=== PATIENT | male | born 1965 | race Caucasian/White ===

== ENCOUNTER 2016-11-11 11:18 | Outpatient (CLI) | payer BC | END 2016-11-11 11:19 | disposition home or self-care (01) | LOC: SC 11:18 | PROVIDERS: ATTEND Internal Medicine Pulmonary Disease | DX: G47.33 Obstructive sleep apnea (adult) (pediatric) (principal) | CPT/HCPCS: 99203; 99212 ==

== ENCOUNTER 2018-08-26 08:00 | Outpatient (CLI) | payer BC, MEDICARE ==
[2018-08-26 12:54] LABS: BASOPHILS % (AUTO) 0.5 %; EOSINOPHILS % (AUTO) 0.8 %; HGB - HEMOGLOBIN 15.3 g/dL (14.0-18.0); LYMPHOCYTES % (AUTO) 26.8 %; MEAN CORPUSCULAR HEMOGLOBIN 28.1 pg (27.0-31.0); MEAN CORPUSCULAR HGB CONC 31.2 g/dL (32.0-36.0); MEAN CORPUSCULAR VOLUME 90.1 fL (80.0-94.0); MEAN PLATELET VOLUME 10.1 fL (7.4-11.4); MONOCYTES # (AUTO) 0.4 10^3/uL (0.0-1.0); MONOCYTES % (AUTO) 9.9 %; NEUTROPHILS # (AUTO) 2.3 10^3/uL (1.5-6.6); NEUTROPHILS % (AUTO) 61.7 %; PLT - PLATELET COUNT 194 10^3/uL (130-450); RED BLOOD COUNT 5.45 10^6/uL (4.70-6.10); RED CELL DISTRIBUTION WIDTH 12.8 % (12.0-15.0); WHITE BLOOD COUNT 3.7 x10^3/uL (4.8-10.8)
[2018-08-26 13:25] LABS: ALBUMIN 4.4 g/dL (3.2-5.5); ALBUMIN/GLOBULIN RATIO 1.5 (1.0-2.2); CALCIUM 9.6 mg/dL (8.5-10.3); TOTAL PROTEIN 7.4 g/dL (6.7-8.2)
[2018-08-26 13:30] LABS: THYROID STIMULATING HORMONE 0.94 uIU/mL (0.34-5.60)
[2018-08-26 13:41] LABS: FOLATE 16.31 ng/mL (5.90 - >24.8)
== END 2018-08-26 23:59 | disposition home or self-care (01) ==
LOC: LAB.WCP 08:00
PROVIDERS: ATTEND Family Medicine
DX: R10.13 Epigastric pain (principal); F02.80 Dementia in other diseases classified elsewhere, unspecified severity, without behavioral disturbance, psychotic disturbance, mood disturbance, and anxiety
CPT/HCPCS: 36415; 80053; 82607; 82746; 84443; 85025

== ENCOUNTER 2018-09-29 09:01 | Outpatient (CLI) | payer MEDICARE | END 2018-09-29 09:02 | disposition EMS.NT | LOC: EMS 09:01 | PROVIDERS: ATTEND Surgery | DX: S80.812A Abrasion, left lower leg, initial encounter (principal); S80.811A Abrasion, right lower leg, initial encounter; X58.XXXA Exposure to other specified factors, initial encounter ==

== ENCOUNTER 2019-01-18 11:43 | Observation (INO) | payer MEDICARE ==
--- NOTE | 2019-01-18 12:26 | ED Physician Documentation ---
PD HPI FOCAL NEURO - Stated complaint Stated Complaint: GLF/HEAD INJ - Chief complaint Chief Complaint: Neuro - History obtained from History obtained from: Family - History of Present Illness Timing - onset: Other (53-year-old gentleman with early onset dementia, familial form. He has had it for almost 3 years now. Most of the history is from the . He started having seizures a few weeks ago. He was started on carbamazepine and Klonopin. Last night it sounds like he may have taken some extra Klonopin, may be about 6 tablets. This morning around 5 AM they found him in the bedroom all wrapped up in the blankets and on the floor face down. It looks like he hit his head. He is persistently altered. He also took several swigs of Pepto-Bismol last night.) Review of Systems Unable to obtain: AMS PD PAST MEDICAL HISTORY - Allergies Allergies/Adverse Reactions: Allergies Allergy/AdvReac Type Severity Reaction Status Date / Time No Known Drug Allergies Allergy Verified 01/18/19 11:59 PD ED PE NORMAL - Vitals Vital signs reviewed: Yes - General General: Other (He is somnolent, he arouses to loud voice. He will say his name. He knows he is in the hospital. He quickly falls back asleep. Some difficulty following commands.) - HEENT HEENT: Other (Small but not pinpoint pupils, no obvious nystagmus but he has difficulty following commands for extraocular movements.) - Neck Neck: Supple, no meningeal sign, No bony TTP - Cardiac Cardiac: RRR, No murmur - Respiratory Respiratory: No respiratory distress, Clear bilaterally - Abdomen Abdomen: Normal bowel sounds, Soft, Non tender - Derm Derm: Normal color, Warm and dry - Extremities Extremities: No deformity, No tenderness to palpate, Normal ROM s pain, No calf tenderness / cord - Neuro Neuro: Other (Somnolence, not really following commands. Hard to tell if he has any lateralizing signs but his gaze is straight and he withdraws all fours to painful stimulus.) Eye Opening: To Voice Motor: Localizes to Pain Verbal: Confused GCS Score: 12 Results - Vitals Vitals: Vital Signs - 24 hr 01/18/19 11:52 Temperature 99.7 C H Heart Rate 77 Respiratory 18 Rate Blood Pressure 116/89 H O2 Saturation 99 Oxygen O2 Source Room air - Labs Labs: Laboratory Tests 01/18/19 01/18/19 01/18/19 12:56 12:56 12:56 WBC 3.9 L RBC 5.17 Hgb 15.4 Hct 45.8 MCV 88.6 MCH 29.8 MCHC 33.6 RDW 12.9 Plt Count 188 MPV 9.5 Neut # (Auto) 2.0 Lymph # (Auto) 1.2 L [place] # (Auto) 0.4 Eos # (Auto) 0.3 Baso # (Auto) 0.0 Absolute Nucleated RBC 0.00 Nucleated RBC % 0.0 Sodium 141 Potassium 4.2 Chloride 105 Carbon Dioxide 32 Anion Gap 4.0 L BUN 14 Creatinine 1.0 Estimated GFR (MDRD) 79 L Glucose 100 Calcium 9.2 Total Bilirubin 0.6 AST 28 ALT 63 H Alkaline Phosphatase 48 Total Protein 7.1 Albumin 4.3 Globulin 2.8 Albumin/Globulin Ratio 1.5 Lipase 39 TSH 0.65 Urine Color Urine Clarity Urine pH Ur Specific [place] Urine Protein Urine Glucose (UA) Urine Ketones Urine Occult Blood Urine Nitrite Urine Bilirubin Urine Urobilinogen Ur Leukocyte Esterase Ur Microscopic Review Urine Culture Comments Last Dose Date Last Dose Time Salicylates < 6.0 Urine Opiates Screen Ur Oxycodone Screen Urine Methadone Screen Ur Propoxyphene Screen Acetaminophen < 10 L Ur Barbiturates Screen Carbamazepine Ur Tricyclics Screen Ur Phencyclidine Scrn Ur Amphetamine Screen U Methamphetamines Scrn U Benzodiazepines Scrn Urine Cocaine Screen U Cannabinoids Screen Ethyl Alcohol < 5.0 01/18/19 01/18/19 12:56 13:22 WBC RBC Hgb Hct MCV MCH MCHC RDW Plt Count MPV Neut # (Auto) Lymph # (Auto) [place] # (Auto) Eos # (Auto) Baso # (Auto) Absolute Nucleated RBC Nucleated RBC % Sodium Potassium Chloride Carbon Dioxide Anion Gap BUN Creatinine Estimated GFR (MDRD) Glucose Calcium Total Bilirubin AST ALT Alkaline Phosphatase Total Protein Albumin Globulin Albumin/Globulin Ratio Lipase TSH Urine Color YELLOW Urine Clarity CLEAR Urine pH 6.0 Ur Specific [place] 1.010 Urine Protein NEGATIVE Urine Glucose (UA) NEGATIVE Urine Ketones NEGATIVE Urine Occult Blood NEGATIVE Urine Nitrite NEGATIVE Urine Bilirubin NEGATIVE Urine Urobilinogen 0.2 (NORMAL) Ur Leukocyte Esterase NEGATIVE Ur Microscopic Review NOT INDICATED Urine Culture Comments NOT INDICATED Last Dose Date Unknown Last Dose Time Unknown Salicylates Urine Opiates Screen NEGATIVE Ur Oxycodone Screen NEGATIVE Urine Methadone Screen NEGATIVE Ur Propoxyphene Screen NEGATIVE Acetaminophen Ur Barbiturates Screen NEGATIVE Carbamazepine < 2.0 Ur Tricyclics Screen POSITIVE H Ur Phencyclidine Scrn NEGATIVE Ur Amphetamine Screen NEGATIVE U Methamphetamines Scrn NEGATIVE U Benzodiazepines Scrn POSITIVE H Urine Cocaine Screen NEGATIVE U Cannabinoids Screen NEGATIVE Ethyl Alcohol PD MEDICAL DECISION MAKING - ED course ED course: This is a 53-year-old gentleman with early onset dementia presents with significant delirium and altered mental status probably from a benzodiazepine overdose last night. Here he is altered and at times agitated as well. Trying to get out of bed and very unsteady, at least a 2 person assist to even pivot out of the bed. did want a head CT after discussion, no pertinent positive findings. She will be unable to take care of him at home and I spoke with Dr. Zayas for observation at 1:58 PM. Departure - Departure Disposition: ED Place in Observation Clinical Impression: Altered mental status Qualifiers: Altered mental status type: delirium Qualified Code(s): R41.0 - Disorientation, unspecified Condition: Fair Discharge Date/Time: 01/18/19 14:44
[2019-01-18 13:03] LABS: BASOPHILS % (AUTO) 0.8 %; EOSINOPHILS # (AUTO) 0.3 10^3/uL (0.0-0.7); EOSINOPHILS % (AUTO) 6.6 %; HGB - HEMOGLOBIN 15.4 g/dL (14.0-18.0); LYMPHOCYTES # (AUTO) 1.2 10^3/uL (1.5-3.5); LYMPHOCYTES % (AUTO) 30.2 %; MEAN CORPUSCULAR HEMOGLOBIN 29.8 pg (27.0-31.0); MEAN CORPUSCULAR HGB CONC 33.6 g/dL (32.0-36.0); MEAN CORPUSCULAR VOLUME 88.6 fL (80.0-94.0); MEAN PLATELET VOLUME 9.5 fL (7.4-11.4); MONOCYTES # (AUTO) 0.4 10^3/uL (0.0-1.0); MONOCYTES % (AUTO) 10.9 %; NEUTROPHILS % (AUTO) 51.2 %; PLT - PLATELET COUNT 188 10^3/uL (130-450); RED BLOOD COUNT 5.17 10^6/uL (4.70-6.10); RED CELL DISTRIBUTION WIDTH 12.9 % (12.0-15.0); WHITE BLOOD COUNT 3.9 x10^3/uL (4.8-10.8)
--- NOTE | 2019-01-18 13:03 | CT Report ---
Reason: ALOC Procedure Date: 01/18/2019 Accession Number: [id number] / [id number] Procedure: CT - HEAD WO CPT Code: Final Report FULL RESULT: EXAM: CT HEAD EXAM DATE: 01/18/2019 12:38 PM. CLINICAL HISTORY: Acute loss of consciousness. COMPARISON: None. TECHNIQUE: Multiaxial CT images were obtained from the foramen magnum to the vertex. Reformats: Sagittal and coronal. IV contrast: None. In accordance with CT protocol optimization, one or more of the following dose reduction techniques were utilized for this exam: automated exposure control, adjustment of mA and/or KV based on patient size, or use of iterative reconstructive technique. FINDINGS: Parenchyma: No intraparenchymal hemorrhage. No evidence of mass, midline shift, or CT findings of infarction. [place]amilla-white differentiation is distinct. Extraaxial Spaces: Normal for age. No subdural or epidural collections identified. Ventricles: Normal in size and position. Sinuses and Orbits: Imaged paranasal sinuses, orbits, and mastoids show no significant abnormality. Bones: No evidence of fracture or calvarial defect. Other: None. IMPRESSION: No acute intracranial abnormality. [facility]
[2019-01-18] MEDS ORDERED: OLANZapine 10 MG VIAL IM STA (13:18)
[2019-01-18] MEDS ORDERED: OLANZapine 10 MG VIAL IM ONE ×2 (13:18→22:13)
[2019-01-18 13:21] LABS: ACETAMINOPHEN < 10 ug/mL (10-30); ALBUMIN 4.3 g/dL (3.2-5.5); ALBUMIN/GLOBULIN RATIO 1.5 (1.0-2.2); ALKALINE PHOSPHATASE 48 IU/L (42-121); ALT ALANINE AMINOTRANSFERASE 63 IU/L (10-60); AST ASPARTATE AMINOTRANSFERASE 28 IU/L (10-42); BILIRUBIN,TOTAL 0.6 mg/dL (0.2-1.0); BUN - BLOOD UREA NITROGEN 14 mg/dL (6-20); CALCIUM 9.2 mg/dL (8.5-10.3); CARBON DIOXIDE - CO2 32 mmol/L (21-32); CHLORIDE 105 mmol/L (101-111); GFR - MDRD 79 (>89); GLUCOSE 100 mg/dL (70-100); LIPASE 39 U/L (22-51); SALICYLATE < 6.0 mg/dL; SODIUM 141 mmol/L (135-145); TOTAL PROTEIN 7.1 g/dL (6.7-8.2)
[2019-01-18 13:26] LABS: CARBAMAZEPINE (TEGRETOL) < 2.0 ug/mL
[2019-01-18 13:27] LABS: MUDS CUTOFF CONCENTRATIONS CUTOFF CONC BELOW:
[2019-01-18 13:29] LABS: BILIRUBIN,URINE NEGATIVE (NEGATIVE); GLUCOSE, URINE (UA) NEGATIVE (NEGATIVE); KETONES,URINE (UA) NEGATIVE (NEGATIVE); LEUKOCYTE ESTERASE, URINE NEGATIVE (NEGATIVE); NITRITE,URINE NEGATIVE (NEGATIVE); OCCULT BLOOD,URINE NEGATIVE (NEGATIVE); PROTEIN,URINE NEGATIVE (NEGATIVE); UROBILINOGEN,URINE 0.2 (NORMAL) E.U./dL (NORMAL)
[2019-01-18 13:30] LABS: CLARITY,URINE CLEAR (CLEAR)
[2019-01-18 13:39] LABS: COCAINE SCREEN URINE NEGATIVE (NEGATIVE); METHAMPHETAMINES SCREEN, URINE NEGATIVE (NEGATIVE); OPIATE SCREEN, URINE NEGATIVE (NEGATIVE)
[2019-01-18 13:40] LABS: AMPHETAMINE SCREEN,URINE NEGATIVE (NEGATIVE); BENZODIAZEPINES SCREEN, URINE POSITIVE (NEGATIVE); METHADONE SCREEN, URINE NEGATIVE (NEGATIVE); OXYCODONE SCREEN, URINE NEGATIVE (NEGATIVE); PROPOXYPHENE SCREEN, URINE NEGATIVE (NEGATIVE); TRICYCLIC ANTIDEPRESSANT,URINE POSITIVE (NEGATIVE)
[2019-01-18] MEDS ORDERED: SODIUM CHLORIDE FLUSH 0.9% 10 ML SYRINGE IVP PRN (13:59)
[2019-01-18] MEDS ORDERED: LACTATED RINGERS 1,000 ML IV SCH (14:00)
--- OUTSIDE RECORDS SUMMARY | 2019-01-18 16:18 | EXTERNAL MEDICAL SUMMARY RPT | CONTINUITY OF CARE DOCUMENT ---
:1965 Author Name GABO [facility] Address Unavailable Unavailable , PROBLEMS Condition Status Date Provider Notes Seizure disorder active Kenya Benavidez PA-C Weight loss active Mario Sainz MD Abdominal pain, epigastric completed - Kenya mcconnell PA-C Alzheimer's dementia active Abbe Jay MD Obstructive sleep apnea active Xochitl ramos MD Abdominal pain completed - Abbe Jay MD Encounter for screening for active [place], EMR malignant neoplasm of Budget Controller prostate Perfect Binder Setter Physical examination completed - Abbe Jay MD VIRAL URI completed - Abbe Jay MD GASTROENTERITIS completed - Sandee Bonner DO URI completed - Hany Ashford MD CELLULITIS/ABSCESS NOS completed - Abbe cano MD PLANTAR FASCIITIS completed - Kenya Benavidez PA-C U R I completed - Per Briseno MD ABDOMIAL BRUIT completed - Kenya Benavidez PA-C A A A completed - Kenya Benavidez PA-C SLEEP APNEA completed - Abbe Jay MD ENCOUNTERS Date Type Provider Location Encounter Diagn osis Ambulatory Irlanda L [facility] UNK - Encounter Heggenes, Primary Care [place] Quality Support [facility] Professional Skateboarder Ambulatory Kenya Bajwa [facility] UNK - Encounter Young, PA-C [facility] Kenya Benavidez PA-C [facility] Ambulatory Kenya L [facility] UNK - Encounter Young, PA-C [facility] Kenya Benavidez PA-C [facility] Ambulatory Kenya Bajwa [facility] UNK - Encounter Young, PA-C [facility] Kenya Benavidez PA-C [facility] Ambulatory Kenya Bajwa [facility] UNK - Encounter Young, PA-C [facility] Kenya Benavidez PA-C [facility] Ambulatory Kenya L [facility] UNK - Encounter Young, PA-C [facility] Kenya Benavidez PA-C [facility] Ambulatory Tegan Salvador, [facility] UNK - Encounter AMBAR Clark, Primary Care [place] Patient [facility] Registrar Ambulatory Judy Randhawa, [facility] UNK - Encounter Referrals Spiral Winder Primary [facility] [place] RH Ambulatory Judy Randhawa [facility] UNK - Encounter Referrals Spiral Winder Primary Care [place] RH Ambulatory Kerri Vang [facility] UNK - Encounter LinkLogic Primary Care [place] RH Ambulatory Kenya Bajwa [facility] UNK - Encounter Young, PA-C Primary Care [place] Kenya Benavidez, PA-C [facility] Ambulatory Kenya Bajwa [facility] UNK - Encounter Young, PA-C Primary Care [place] Kenya Benavidez PA-C Ambulatory Kenya L [facility] UNK - Encounter Young, PA-C Primary Care [place] Kenya Benavidez, PA-C [facility] Ambulatory Kenya L [facility] UNK - Encounter Young, PA-C Primary Care [place] Kenya Benavidez, PA-C [facility] Ambulatory Kenya aSna [facility] UNK - Encounter Young, PA-C Primary Care [place] Kenyajavier Benavidez, PA-C [facility] Ambulatory Kenya Bajwa [facility] UNK - Encounter Young, PA-C Primary Care [place] Kenya Benavidez, PA-C [facility] Ambulatory Kenya Bjawa [facility] Seizure disord er - Encounter Young, PA-C Primary Care [place] Kenya Benavidez, PA-C Kaila Courtney, MARTHA Mckeon, Patient Registrar Ambulatory Teena Fay, [facility] UNK - Encounter Patient Primary Care [place] Registrar [facility] Ambulatory Lis Gao RN [facility] UNK - Encounter Primary Care [place] RHC Ambulatory Lis Gao RN [facility] UNK - Encounter Agaanay Clark, Primary Care [place] Patient [facility] Registrar Ambulatory Kenya L [facility] UNK - Encounter Young, PA-C Primary Care [place] Kenya Benavidez, PA-C [facility] Ambulatory Kenya Bajwa [facility] UNK - Encounter Young, PA-C Primary Care [place] Kenya Benavidez, PA-C [facility] Ambulatory Kenya Bajwa [facility] UNK - Encounter Young, PA-C Primary Care [place] Kenya Benavidez, PA-C [facility] Ambulatory Judy Randhawa, [facility] UNK - Encounter Referrals Spiral Winder Primary Care [place] RHC Ambulatory Judy Randhawa, [facility] UNK - Encounter Referrals Spiral Winder Primary Care [place] RHC Ambulatory Kenya Bajwa [facility] UNK - Encounter Young, PA-C Primary Care [place] CHELITA BourgeoisC CARMEN CotoC Ambulatory Calista Ro [facility] UNK - Encounter Raul, Primary Care [place] Referrals C Ambulatory Adri Silva, [facility] UNK - Encounter MARTHA Bajwa Primary Care [place] MJ Benavidez-C [facility] MJ Ware-C Vero Harper, Casualty Claims Supervisor Ambulatory Scarlett Garcia, [facility] UNK - Encounter Patient Primary Care [place] Registrar [facility] Ambulatory Kenya Bajwa [facility] Abdominal pain , - Encounter MJ Benavidez-C Primary Care [place] epigastri c JUAN A Bourgeois MA-C Ambulatory Scarlettjaylon Garcia, [facility] UNK - Encounter Patient Primary Care [place] Registrar [facility] Ambulatory Kenya Bajwa [facility] UNK - Encounter Pramod PA-C Primary Care [place] Kenya Benavidez PA-C [facility] Ambulatory Siri Kebede MA [facility] UNK - Encounter Primary Care [place] [facility] Ambulatory Kenya Bajwa [facility] UNK - Encounter Pramod PA-C Primary Care [place] Kenya Benavidez PA-C [facility] Ambulatory Kenya Bajwa [facility] UNK - Encounter Pramod PA-C Primary Care [place] Kenya Benavidez PA-C [facility] Ambulatory Mario Sainz, [facility] UNK - Encounter MD Mario Worley Primary Care [place] MD Alistair [facility] Ambulatory Mario Sainz, [facility] UNK - Encounter MD Mario Worley Primary Care [place] MD Alistair [facility] LinkLog Ambulatory Mario Sainz [facility] UNK - Encounter MD Mario Worley Primary Care [place] MD Alistair [facility] Ambulatory Mario Sainz [facility] UNK - Encounter MD Mario Worley Primary Care [place] MD Alistair [facility] LinkLog Ambulatory Mario Sainz [facility] UNK - Encounter MD Mario Worley Primary Care [place] MD Alistair [facility] Siri Kebede, GISSELLE Ambulatory Mario Sainz [facility] UNK - Encounter MD Mario Worley [facility] Care [place] MD Alistair [facility] Ambulatory Mario Sainz, [facility] Abdominal p ain, - Encounter MD Mario Worley [facility] epigastri cWeight loss MD Alistair [facility] Siri Kebede, GISSELLE Ambulatory Migdalia Marquez, [facility] UNK - Encounter Patient Primary Care [place] Registrar [facility] Ambulatory Annia Fraser [facility] UNK - Encounter AMBAR Iyer Primary Care [place] Coco Rios, [facility] Referrals Spiral Winder Ambulatory Abbe Fraser [facility] Physical - Encounter MD Misty Primary Care [place] examinati onAbdominal Abbe Varela painAlzheimer' s dementia MD Lselye Jay MA-C Ambulatory Abbe Fraser [facility] UNK - Encounter MD Misty Primary Care [place] Abbe Jay MD [facility] Ambulatory Irlanda L [facility] UNK - Encounter Heggjennifer, Surgical Care Quality Combat Rifle Crewmember Ambulatory Abbe Fraser [facility] UNK - Encounter MD Misty Primary Care [place] MD Tegan Garcia, AMBAR Ambulatory Irlanda Sana [facility] UNK - Encounter Hanna, Primary Care [place] Quality Support Drive Professional Skateboarder [facility] Tegan Salvador, AMBAR Ambulatory Abbe Fraser [facility] UNK - Encounter MD Misty Primary Care [place] Abbe Jay MD [facility] Irlanda Ferreira, Quality Combat Rifle Crewmember Ambulatory Xochitl Norman [facility] UNK - Encounter MD Afsaneh Primary Care [place] MD Calista Brower, Referrals Ambulatory Calista A [facility] UNK - Encounter Raul, Primary Care [place] Referrals Drive Ambulatory Lorin [facility] Obstructive sl eep apnea - Encounter MARTHA Galvan Primary Care [place] Calistaroyer Carter, Referrals MD Xochitl Espinoza MD Brittany Jennings, PFS Ambulatory Jerel Lozoya [facility] UNK - Encounter Manager Heart FailureSupervisor Cemetery Workers [place] Drive Ambulatory Abbe Fraser [facility] UNK - Encounter MD Misty Primary Care [place] Abbe Jay MD LinkLog Ambulatory Hakaner J [facility] Abdominal penny n - Encounter MD Misty Primary Care [place] MD Leslye Garcia MA-C Ambulatory [facility]e [facility] UNK - Encounter MARTHA Feliz Primary Care [place] Nichole Delcid. Le Courtney, Patient Registrar Ambulatory Hakaner J [facility] UNK - Encounter MD Misty Primary Care [place] Abbe Jay MD [facility] Ambulatory [facility]be [facility] UNK - Encounter MD Misty Primary Care [place] MD Leslye Garcia MA-C Ambulatory [place], [facility] Encounter for screening - Encounter EMR Application Primary Care [place] for ma lignant neoplasm of Support Drive prostate Perfect Binder Setter Ki Velez, EMR Tool Or Die Drawing Checker Ambulatory Abbe Fraser [facility] UNK - Encounter MD Misty Primary Care [place] Abbe Jay MD LinkLog Ambulatory Kenya Bajwa [facility] UNK - Encounter JUAN A Benavidez Primary Care [place] JUAN A Sneed, Referrals Layla Love MA Ambulatory [place], [facility] UNK - Encounter EMR Application Primary Care [place] Support Drive Perfect Binder Setter Ki Velez, EMR Tool Or Die Drawing Checker Rosita Martinez, Referrals JUAN A Ware PA-C Ambulatory Abbe Fraser [facility] SLEEP APNEA - Encounter MD Misyt Primary Care [place] MD Leslye Garcia MA-C Ambulatory Scharlene F [facility] UNK - Encounter Heston, Primary Care [place] Casualty Claims Supervisor Drive Ambulatory Scharlene F [facility] UNK - Encounter Heston, Primary Care [place] Casualty Claims Supervisor Drive Ambulatory Bonita Bajwa [facility] UNK - Encounter VICENTA Ayala Primary Care [place] Drive Ambulatory Julia Tubbs [facility] UNK - Encounter PA-C LinkLog Primary Care [place] Drive Ambulatory Abbe Fraser [facility] UNK - Encounter MD Misty Primary Care [place] Abbe Jay MD [facility] Ambulatory Julia Tubbs, [facility] Physical - Encounter JUAN A Bajwa Primary Care [place] examinati onEncounter for HOLLI Zuñiga fo ranulfo Odell, Chart neoplasm of p rostate Population Health Manager Ambulatory King Mckeon, [facility] UNK - Encounter METAL WIRE TECHNICIAN Kirsite Calhoun Primary Care [place] Bandar, Casualty Claims Supervisor Drive Ambulatory Rajesh Melchor, [facility] UNK - Encounter MA-C Primary Care Neb[place] Drive Ambulatory Savanah Wagner, [facility] UNK - Encounter Medical Records Primary Care [place] LinkLog King Nichole Mckeon [facility] Ambulatory Abbe [facility] VIRAL URI - Encounter MD Misty Primary Care [place] MD King Garcia, [facility] Emily Odell, Chart Population Health Manager Ambulatory Abbe Fraser [facility] UNK - Encounter MD Misty Primary Care [place] Abbe Jay MD LinkLog Ambulatory Earnestine uZñiga [facility] UNK - Encounter HOLLI Calhoun Primary Care [place] HOLLI Ashley Drive Ambulatory Judye A Scheidt, [facility] UNK - Encounter DO Judye A Primary Care [place] Scheidt, DO Drive Ambulatory Judye A Scheidt, [facility] UNK - Encounter DO Judye A Primary Care [place] Scheidt, DO Drive [facility] HOLLI Fernandez LPN Ambulatory Judye A Scheidt, [facility] UNK - Encounter DO Judye A Primary Care [place] Scheidt, DO Drive LinkLog Ambulatory Judye A Scheidt, [facility] UNK - Encounter DO Judye A Primary Care [place] Scheidt, DO Drive [facility]Logic Ambulatory Judye A Scheidt, [facility] UNK - Encounter DO Judye A Primary Care [place] Scheidt, DO Drive [facility]Logic Ambulatory Judye A Scheidt, [facility] GASTROENTE RITIS - Encounter DO Judye A Primary Care [place] Scheidt, DO Drive HOLLI Fernandez, Chart Population Health Manager Ambulatory Adri Lj [facility] UNK - Encounter GISSELLE Lowe Primary Care Nebo Drive Ambulatory Abbe Fraser [facility] UNK - Encounter MD Misty Primary Care [place] Abbe Jay MD [facility]Log Ambulatory Abeb [facility] UNK - Encounter MD Misty Primary Care [place] MD Carla Garcia, Patient Accounts Giovanna Lares, Chart Population Health Manager MARTHA Delcid Ambulatory Abbe Fraser [facility] UNK - Encounter MD Misty Primary Care [place] Abbe Jay MD LinkLog Ambulatory Bren Aponte, [facility] UNK - Encounter Medical Records Primary Care Nebo Drive Ambulatory King Mckeon [facility] UNK - Encounter [facility] Primary Care [place] Drive Ambulatory Abbe [facility] UNK - Encounter MD Misty Primary Care [place] Abbe Jay MD Ambulatory [facility] UNK - Encounter MD Misty Primary Care [place] Abbe Jay MD LinkLog King Mckeon [facility] Ambulatory King Mckeon [facility] UNK - Encounter METAL WIRE TECHNICIAN Primary Care Neb[place] Drive Ambulatory Abbe [facility] UNK - Encounter MD Misty Primary Care [place] Abbe Jay MD Ambulatory [facility]be [facility] UNK - Encounter MD Misty Primary Care [place] Abbe Jay MD LinkLogic King Mckeon METAL WIRE TECHNICIAN Ambulatory King Mckeon [facility] UNK - Encounter METAL WIRE TECHNICIAN Primary Care [place] Drive Ambulatory Maryann Jay, [facility] UNK - Encounter PA-C Primary Care [place] Drive Ambulatory Abbe [facility] UNK - Encounter MD Misty Primary Care [place] Abbe Jay MD [facility] Ambulatory [facility]be [facility] UNK - Encounter MD Misty Primary Care [place] Abbe Jay MD [facility] Ambulatory [facility]be [facility] UNK - Encounter MD Misty Primary Care [place] Abbe Jay MD [facility] Ambulatory Estevan [facility] UNK - Encounter PA-C LinkLog Primary Care [place] Drive Ambulatory Abbe [facility] UNK - Encounter MD Misty Primary Care [place] Abbe Jay MD LinkLogic Maryann Jay, PA-C Ambulatory Maryann Jay, [facility] UNK - Encounter PA-C [facility] Primary Care [place] Drive Ambulatory Maryann Jay, [facility] UNK - Encounter PA-C LinkLog Primary Care [place] Drive Ambulatory Maryann Jay, [facility] UNK - Encounter PA-C LinkLog Primary Care [place] Drive Ambulatory Maryann Jay [facility] UNK - Encounter PA-C [facility] Primary Care [place] Drive Ambulatory Hakaner J [facility] UNK - Encounter MD Misty Primary Care [place] Abbe Jay MD LinkLog Maryann Jay, PA-C King Mckeon, [facility] Ambulatory Rebecca A [facility] UNK - Encounter Mary Primary Care [place] Casualty Claims Supervisor Drive Ambulatory Christopher J [facility] UNK - Encounter MD Misty Primary Care [place] MD King Garcia, [facility] Ambulatory Calvina M [facility] UNK - Encounter HOLLI Mathews Primary Care [place] Drive Ambulatory Kenya Sana [facility] UNK - Encounter Pramod PA-C Primary Care [place] MJ Sneed-C LinkLog Ambulatory Kenya L [facility] PLANTAR FASCII TIS - Encounter MJ Benavidez-Brunilda Primary Care [place] MJ Sneed-C Claudine Landaverde LPN Ambulatory Hakaner J [facility] UNK - Encounter MD Misty Primary Care [place] Abbe Jay MD LinkLog Ambulatory Josueopher J [facility] UNK - Encounter MD Misty Primary Care [place] Abbe Jay MD LinkLog Ambulatory Hany Living[place] [facility] UNK - Encounter MD Dejon Primary Care [place] MD Rebecca Zarate LPN Ambulatory Hany [place] [facility] URI - Encounter MD Dejon Primary Care [place] MD Rebecca Zarate LPN Ambulatory Christopher J [facility] CELLULITIS/AB SCESS NOS - Encounter MD Misty Primary Care [place] MD Nkechi Garcia LPN Ambulatory Hollister H [facility] UNK - Encounter Edith, PRODUCT DEVELOPER Primary Care [place] Vicky Pike, Drive Casualty Claims Supervisor Ambulatory Calista A [facility] UNK - Encounter Raul Primary Care [place] Referrals Drive Ambulatory Kenya L [facility] PLANTAR FASCII TIS - Encounter JUAN A Benavidez Primary Care [place] JUAN A Sneed LPN Ambulatory Abbe Fraser [facility] UNK - Encounter MD Misty Primary Care [place] Abbe Jay MD [facility] Ambulatory Kenya [facility] UNK - Encounter MJ Benavidez-Brunilda Primary Care [place] Kenya Benavidez PA-C [facility]aja Ambulatory [facility]be [facility] UNK - Encounter MD Misty Primary Care [place] MD King Garcia, [facility] Ambulatory Noreen Cao [facility] UNK - Encounter Patient Accounts Primary Care Neb[place] Drive Ambulatory Abbe [facility] UNK - Encounter MD Misty Primary Care [place] Abbe Jay MD [facility]Log[facility] Ambulatory Kenya L [facility] UNK - Encounter JUAN A Benavidez Primary Care [place] Kenya Benavidez PA-C [facility]aja Ambulatory Kenya [facility] A A AABDOMIAL BRUIT - Encounter MJ Benavidez-Brunilda Primary Care [place] JUAN A Sneed LPN Ambulatory Christopher J [facility] UNK - Encounter MD Misty Primary Care [place] Abbe Jay MD LinkLogic Ambulatory Josueopher J [facility] UNK - Encounter MD Misty Primary Care [place] Abbe Jay MD [facility]Log[facility] Ambulatory Hakaner Bria [facility] UNK - Encounter MD Misty Primary Care [place] Abbe Jay MD [facility]Logic Ambulatory Josueopher J [facility] UNK - Encounter MD Misty Primary Care [place] Abbe Jay MD LinkLog Ambulatory Per [facility] UNK - Encounter MD Finn Primary Care [place] Per Briseno MD LinkLog Ambulatory [facility]be [facility] UNK - Encounter MD Misty Primary Care [place] Abbe Jay MD LinkLog Ambulatory [facility]be [facility] UNK - Encounter MD Misty Primary Care [place] Abbe Jay MD LinkLog Ambulatory [facility]be [facility] UNK - Encounter MD Misty Primary Care [place] MD Irlanda Garcia, Quality Combat Rifle Crewmember Ambulatory Hakaner Bria [facility] UNK - Encounter MD Misty Primary Care [place] Abbe Jay MD LinkLog Ambulatory Calista A [facility] UNK - Encounter Raul Primary Care [place] Referrals Christi Barrientos, Referrals Ambulatory [facility] SLEEP APNEAA A AABDOMIAL - Encounter MD Finn Primary Care [place] BRUITU R I MD Ki Toro EMR Tool Or Die Drawing Checker Ki Velez EMR Tool Or Die Drawing Checker VITAL SIGNS Date Observation Value Provider blood pressure, diastolic 76 mm[Hg] Kaila Leiva MARTHA Courtney " blood pressure, systolic 137 mm[Hg] Kaila Leiva MARTHA Courtney " blood pressure, cuff size regular Kaila Leiva MARTHA Courtney " blood pressure, site #1 L. arm sitting Kaila Leiva MARTHA Courtney " pulse rate E&M 73 /min Kaila Leiva MARTHA Jeo " temperature site oral Kaila Leiva MARTHA Vang ms " temperature E&M 97.6 [degF] Kaila S MARTHA Joe " weight E&M 159.2 lbs. Kaila Cali MARTHA Joe blood pressure, cuff size regular MARTHA Coto " blood pressure, site #1 L. arm sitting Idaa MARTHA Love " blood pressure, diastolic 71 mm[Hg] MARTHA Coto " blood pressure, systolic 109 mm[Hg] MARTHA Coto " pulse rate E&M 66 /min CARMEN Coto " temperature site oral GISSELLE Coto " temperature E&M 97.7 [degF] CARMEN Coto " weight E&M 150.50 lbs. CARMEN Coto blood pressure, cuff size regular MARTHA Coto " blood pressure, site #1 R. arm sitting Ethanejda MARTHA Love " blood pressure, diastolic 76 mm[Hg] MARTHA Coto " blood pressure, systolic 112 mm[Hg] MARTHA Coto " pulse rate E&M 65 /min CARMEN Coto " temperature site oral GISSELLE Coto " temperature E&M 97.5 [degF] CARMEN Coto " weight E&M 151 lbs. CARMEN Coto blood pressure, cuff size regular Siri Kebede MA" blood pressure, site #1 L. arm sitting Siri roman MA " respiratory rate E&M 16 /min Siri ordonez MA " blood pressure, diastolic 72 mm[Hg] Siri Kebede MA " blood pressure, systolic 121 mm[Hg] Siri Kebede MA " temperature site oral Lj Disal " pulse rate E&M 88 /min Siri Kebede MA " weight E&M 152.8 lbs. Siri Kebede MA " height E&M 68 [in_i] Siri Kebede MA " temperature E&M 98.3 [degF] Siri Kebede MA pulse rate E&M 50 /min MARTHA Rojas " temperature E&M 98.4 [degF] MARTHA Rojas " blood pressure, site #1 L. arm sitting MARTHA Warren " blood pressure, diastolic 62 mm[Hg] MARTHA Coelho " blood pressure, systolic 110 mm[Hg] MARTHA Martel " respiratory rate E&M 14 /min MARTHA Rojas " weight E&M 166 lbs. MARTHA Rojas " height E&M 68 [in_i] MARTHA Rojas " blood pressure, cuff size regular MARTHA Coelho " temperature site oral MARTHA Mcpherson blood pressure, site #1 L. arm sitting MARTHA Warren " blood pressure, diastolic 68 mm[Hg] MARTHA Coelho " blood pressure, systolic 110 mm[Hg] MARTHA Martel " pulse rate E&M 56 /min MARTHA Rojas " temperature E&M 97.9 [degF] MARTHA Rojas " respiratory rate E&M 14 /min MARTHA Rojas " height E&M 68 [in_i] MARTHA Rojas " weight E&M 155 lbs. MARTHA Rojas " blood pressure, cuff size regular MARTHA Coelho " temperature site oral MARTHA Mcpherson blood pressure, site #1 R. arm sitting MARTHA Warren " blood pressure, diastolic 72 mm[Hg] Tannercriselda rolleMARTHA Geller " blood pressure, systolic 118 mm[Hg] MARTHA Martel " pulse rate E&M 62 /min MARTHA Rojas " respiratory rate E&M 14 /min MARTHA Rojas " temperature E&M 98.2 [degF] MARTHA Rojas " blood pressure, cuff size regular MARTHA Coelho " temperature site oral MARTHA Mcpherson " weight E&M 165 lbs. MARTHA Rojas " height E&M 68 [in_i] MARTHA Rojas temperature E&M 97.5 [degF] Earnestine Zuñiga, LP N " temperature site oral Earnestine Zuñiga L PN " pulse rate E&M 52 /min Earnestine Zuñiga LP N " blood pressure, cuff size regular Earnestine Zuñiga PRODUCT DEVELOPER " blood pressure, site #1 L. arm sitting Earnestine Zuñiga PRODUCT DEVELOPER " blood pressure, diastolic 74 mm[Hg] Earnestine Zuñiga PRODUCT DEVELOPER " blood pressure, systolic 110 mm[Hg] Earnestine Zuñiga, PRODUCT DEVELOPER " weight E&M 157 lbs. Earnestine L Zuñiga, LP N " height E&M 68 [in_i] Earnestine L Zuñiga, LP N respiratory rate E&M 12 /min King soler CMA " temperature site oral King Mckeon CMA " temperature E&M 98.4 [degF] Brunilda Griffin MA " pulse rate E&M 48 /min Brunilda Griffin MA " blood pressure, diastolic 72 mm[Hg] King Mckeon CMA " blood pressure, systolic 114 mm[Hg] King Mckeon CMA " height E&M 67.75 [in_i] Brunilda Griffin MA " weight E&M 151.8 lbs. Brunilda Griffin MA temperature site oral Earnestine Bajwa Zara L PN " temperature E&M 97.9 [degF] Earnestine Bajwa Zara, LP N " pulse rate E&M 56 /min Earnestine Sana Zuñiga, LP N " blood pressure, cuff size regular Earnestine L Zara, PRODUCT DEVELOPER " blood pressure, diastolic 60 mm[Hg] Earnestine L Zara, PRODUCT DEVELOPER " blood pressure, systolic 108 mm[Hg] Earnestinemeghann Zuñiga, PRODUCT DEVELOPER " weight E&M 151 lbs. Earnestine Zuñiga, LP N blood pressure, diastolic 60 mm[Hg] MARTHA Langley " blood pressure, systolic 100 mm[Hg] MARTHA Delcid " pulse rate E&M 46 /min MARTHA Delcid " oxygen saturation, oximetry 99 % MARTHA Perdue " respiratory rate E&M 16 /min MARTHA Lay " temperature site oral MARTHA Delcid " weight E&M 156.8 lbs. MARTHA Delcid " height E&M 67.75 [in_i] MARTHA Delcid weight E&M 162 lbs. Brunilda Griffin MA " respiratory rate E&M 12 /min Kign soler CMA " temperature site oral King Mckeon CMA " temperature E&M 98.6 [degF] Brunilda Griffin MA " pulse rate E&M 52 /min Brunilda Griffin MA " blood pressure, diastolic 70 mm[Hg] King Mckeon CMA " blood pressure, systolic 104 mm[Hg] King Mckeon CMA pulse rate E&M 48 /min Claudine Landaverde LPN " blood pressure, cuff size regular Leonardo Landaverde LPN " blood pressure, diastolic 78 mm[Hg] Almanif er Za Landaverde LPN " blood pressure, systolic 100 mm[Hg] Yadiel Mendenhall , PRODUCT DEVELOPER " temperature site oral Claudine Landaverde , PRODUCT DEVELOPER " temperature E&M 97.6 [degF] Claudine Mendenhall Akhil, PRODUCT DEVELOPER " weight E&M 166.6 lbs. Claudine Mendenhall JULIÁN LandaverdeN " height E&M 68 [in_i] Claudine Mendenhall Akhil, PRODUCT DEVELOPER pulse rate E&M 60 /min Rebecca Covington sJULIÁNN " blood pressure, cuff size regular Talon Eduardo LPN " blood pressure, diastolic 80 mm[Hg] Talon Eduardo LPN " blood pressure, systolic 120 mm[Hg] Rebecca Eduardo LPN " temperature site oral Rebecca garibay, PRODUCT DEVELOPER " temperature E&M 97.6 [degF] Rebecca Covington sJULIÁNN " weight E&M 162 lbs. Rebecca [place] sHOLLI blood pressure, diastolic 78 mm[Hg] Wolvertonshi ne H Edith, PRODUCT DEVELOPER " blood pressure, systolic 122 mm[Hg] Wolvertonshin e H Edith, PRODUCT DEVELOPER " pulse rate E&M 56 /min Hollister H Jameel y, PRODUCT DEVELOPER " temperature E&M 99.0 [degF] Hollister H Pengracie y, PRODUCT DEVELOPER " temperature site oral Hollister H Millerton ey, PRODUCT DEVELOPER " weight E&M 163 lbs. Hollister H Pengracie y, PRODUCT DEVELOPER pulse rate E&M 58 /min Crystal TL Ruyba l, PRODUCT DEVELOPER " blood pressure, diastolic 70 mm[Hg] Claudia l TL Ruybal, PRODUCT DEVELOPER " blood pressure, systolic 110 mm[Hg] Crystal TL Ruybal, PRODUCT DEVELOPER " weight E&M 161 lbs. Crystal TL Ruyba l, PRODUCT DEVELOPER temperature site oral King Mckeon CMA " temperature E&M 98.7 [degF] Brunilda Griffin MA " respiratory rate E&M 12 /min King soler CMA " pulse rate E&M 58 /min Brunilda Griffin MA " blood pressure, diastolic 72 mm[Hg] King Mckeon CMA " blood pressure, systolic 114 mm[Hg] King Mckeon CMA " weight E&M 161 lbs. Brunilda Griffin MA " height E&M 67 [in_i] Brunilda Griffin MA blood pressure, cuff size regular Kelly Linder LPN " blood pressure, diastolic 60 mm[Hg] Kelly Linder PRODUCT DEVELOPER " blood pressure, systolic 102 mm[Hg] Kelly Linder PRODUCT DEVELOPER " pulse rate E&M 72 /min Kelly Linder, L PN " respiratory rate E&M 16 /min Kelly sears PRODUCT DEVELOPER " temperature site oral Kelly Linder PRODUCT DEVELOPER " temperature E&M 98.7 [degF] Kelly Linder, L PN " weight E&M 168 lbs. Kelly Linder, L PN " height E&M 68.0 [in_i] Kelly Linder L PN respiratory rate E&M 14 /min Irlandaallie vieyra, Quality Combat Rifle Crewmember " pulse rate, standing 56 /min Irlandageovanna vieyra, Quality Combat Rifle Crewmember " blood pressure, cuff size regular Irlandageovanna Ferreira, Quality Combat Rifle Crewmember " blood pressure, diastolic 58 mm[Hg] Irlanda Sana Ferreira, Quality Combat Rifle Crewmember " blood pressure, systolic 102 mm[Hg] Irlanda Sana Ferreira, Quality Combat Rifle Crewmember " weight E&M 162 lbs. Irlandageovanna Sykes s, Quality Combat Rifle Crewmember blood pressure, diastolic 58 mm[Hg] [place] Agustin, EMR Budget Controller Technici an " blood pressure, systolic 114 mm[Hg] [place], EMR Budget Controller Technici an " pulse rate E&M 58 /min [place], EM R Budget Controller Technici an " temperature site oral [place], E MR Budget Controller Technici an " temperature E&M 98.6 [degF] [place], EM R Budget Controller Technici an " weight E&M 164 lbs. [place], EM R Budget Controller Technici an " height E&M 68 [in_i] [place], EM R Budget Controller Technici an Allergies No Known Allergy Information REASON FOR REFERRAL Start Date - End Date Service - Neurology Consultation - Psychiatry Consultation - Neurology Consultation - Palliative Care RESULTS Date Observation Value Provider Reference Interpretation Loc ation Range glucose, urine NEGATIVE [facility] NEGATIVE /18 mg/dL " bilirubin, urine NEGATIVE [facility] NEGATIVE " ketones, urine, by NEGATIVE [facility] NEGATIVE test strip " specific gravity, 1.010 [facility] 1.002-1.030 urine " pH study of acidity 6.0 [facility] 5.0-7.5 " urobilinogen, 0.2 [facility] NORMAL urine, (NORMAL) semiquantitative (dipstick) " nitrite, urine, NEGATIVE [facility] NEGATIVE semiquantitative " leukocyte esterase, NEGATIVE [facility] NEGATIVE urine, by dipstick " clarity, urine, CLEAR [facility] CLEAR point " urine color YELLOW [facility] albumin/globulin 1.5 [facility] 1.0-2.2 Normal /18 ratio, serum " globulin, serum 2.8 [facility] 2.1-4.2 Normal " albumin, serum 4.3 g/dL [facility] 3.2-5.5 Normal " protein, total, 7.1 g/dL [facility] 6.7-8.2 Normal serum " alkaline 48 1/L [facility] 42-121 Normal phosphatase, serum " alanine 63 1/L [facility] 10-60 High aminotransferase (SGPT), serum " aspartate 28 1/L [facility] 10-42 Normal aminotransferase (SGOT), serum " bilirubin, serum, 0.6 mg/dL [facility] 0.2-1.0 Normal total " calcium, serum 9.2 mg/dL [facility] 8.5-10.3 Normal " blood glucose 100 mg/dL [facility] 70-100 Normal " Glomerular 79 mL/min [facility] >89 Low Filtration rate " creatinine, serum 1.0 mg/dL [facility] 0.6-1.2 Normal " urea nitrogen, 14 mg/dL [facility] 6-20 Normal blood " anion gap, serum 4.0 [facility] 6-13 Low " carbon dioxide, 32 mmol/L [facility] 21-32 Normal serum, total " chloride, serum 105 mmol/L [facility] 101-111 Normal " potassium, blood 4.2 meq/L [facility] 3.5-5.0 Normal " sodium, serum 141 mmol/L [facility] 135-145 Normal " basophil count, 0.0 10 3/UL [facility] 0.0-0.1 Normal blood " eosinophil count, 0.3 10 3/UL [facility] 0.0-0.7 Normal blood " monocyte count, 0.4 10 3/UL [facility] 0.0-1.0 Normal blood " lymphocyte count, 1.2 10 3/UL [facility] 1.5-3.5 Low blood " neutrophil count, 2.0 10 3/UL [facility] 1.5-6.6 Normal blood " mean platelet 9.5 fL [facility] 7.4-11.4 Normal volume " platelet count 188 10 3/UL [facility] 130-450 Normal " red blood cell 12.9 % [facility] 12.0-15.0 Normal distribution width " mean corpuscular 33.6 g/dL [facility] 32.0-36.0 Normal hemoglobin concentration, rbc " mean corpuscular 29.8 pg [facility] 27.0-31.0 Normal hemoglobin, RBC " mean corpuscular 88.6 fL [facility] 80.0-94.0 Normal volume, RBC " hematocrit, blood 45.8 % [facility] 42.0-52.0 Normal " hemoglobin, blood 15.4 g/dL [facility] 14.0-18.0 Normal " erythrocyte (RBC) 5.17 10 [facility] 4.70-6.10 Normal count 6/UL " leukocyte count, 3.9 X10 [facility] 4.8-10.8 Low blood 3/UL vitamin b12, serum 362 pg/mL [facility] 180-914 Normal /13 " albumin/globulin 1.6 [facility] 1.0-2.2 Normal ratio, serum " globulin, serum 2.8 [facility] 2.1-4.2 Normal " albumin, serum 4.5 g/dL [facility] 3.2-5.5 Normal " protein, total, 7.3 g/dL [facility] 6.7-8.2 Normal serum " alkaline 51 1/L [facility] 42-121 Normal phosphatase, serum " alanine 92 1/L [facility] 10-60 High aminotransferase (SGPT), serum " aspartate 35 1/L [facility] 10-42 Normal aminotransferase (SGOT), serum " bilirubin, serum, 0.5 mg/dL [facility] 0.2-1.0 Normal total " calcium, serum 9.8 mg/dL [facility] 8.5-10.3 Normal " blood glucose 65 mg/dL [facility] 70-100 Low " Glomerular 71 mL/min [facility] >89 Low Filtration rate " creatinine, serum 1.1 mg/dL [facility] 0.6-1.2 Normal " urea nitrogen, 20 mg/dL [facility] 6-20 Normal blood " anion gap, serum 6.0 [facility] 6-13 Normal " carbon dioxide, 32 mmol/L [facility] 21-32 Normal serum, total " chloride, serum 105 mmol/L [facility] 101-111 Normal " potassium, blood 4.4 meq/L [facility] 3.5-5.0 Normal " sodium, serum 143 mmol/L [facility] 135-145 Normal " basophil count, 0.0 10 3/UL [facility] 0.0-0.1 Normal blood " eosinophil count, 0.1 10 3/UL [facility] 0.0-0.7 Normal blood " monocyte count, 0.5 10 3/UL [facility] 0.0-1.0 Normal blood " lymphocyte count, 1.0 10 3/UL [facility] 1.5-3.5 Low blood " neutrophil count, 3.0 10 3/UL [facility] 1.5-6.6 Normal blood " mean platelet 10.0 fL [facility] 7.4-11.4 Normal volume " platelet count 193 10 3/UL [facility] 130-450 Normal " red blood cell 13.2 % [facility] 12.0-15.0 Normal distribution width " mean corpuscular 33.4 g/dL [facility] 32.0-36.0 Normal hemoglobin concentration, rbc " mean corpuscular 29.8 pg [facility] 27.0-31.0 Normal hemoglobin, RBC " mean corpuscular 89.2 fL [facility] 80.0-94.0 Normal volume, RBC " hematocrit, blood 44.0 % [facility] 42.0-52.0 Normal " hemoglobin, blood 14.7 g/dL [facility] 14.0-18.0 Normal " erythrocyte (RBC) 4.93 10 [facility] 4.70-6.10 Normal count 6/UL " leukocyte count, 4.6 X10 [facility] 4.8-10.8 Low blood 3/UL TSH 0.57341 [facility] Units Normal /26 mIU/mL converted. See lab report for original value. " vitamin b12, serum 240 pg/mL [facility] 180-914 Normal " albumin/globulin 1.5 [facility] 1.0-2.2 Normal ratio, serum " globulin, serum 3.0 [facility] 2.1-4.2 Normal " albumin, serum 4.4 g/dL [facility] 3.2-5.5 Normal " protein, total, 7.4 g/dL [facility] 6.7-8.2 Normal serum " alkaline 43 1/L [facility] 42-121 Normal phosphatase, serum " alanine 21 1/L [facility] 10-60 Normal aminotransferase (SGPT), serum " aspartate 19 1/L [facility] 10-42 Normal aminotransferase (SGOT), serum " bilirubin, serum, 1.0 mg/dL [facility] 0.2-1.0 Normal total " calcium, serum 9.6 mg/dL [facility] 8.5-10.3 Normal " blood glucose 89 mg/dL [facility] 70-100 Normal " Glomerular 79 mL/min [facility] >89 Low Filtration rate " creatinine, serum 1.0 mg/dL [facility] 0.6-1.2 Normal " urea nitrogen, 18 mg/dL [facility] 6-20 Normal blood " anion gap, serum 9.0 [facility] 6-13 Normal " carbon dioxide, 32 mmol/L [facility] 21-32 Normal serum, total " chloride, serum 101 mmol/L [facility] 101-111 Normal " potassium, blood 4.4 meq/L [facility] 3.5-5.0 Normal " sodium, serum 142 mmol/L [facility] 135-145 Normal " basophil count, 0.0 10 3/UL [facility] 0.0-0.1 Normal blood " eosinophil count, 0.0 10 3/UL [facility] 0.0-0.7 Normal blood " monocyte count, 0.4 10 3/UL [facility] 0.0-1.0 Normal blood " lymphocyte count, 1.0 10 3/UL [facility] 1.5-3.5 Low blood " neutrophil count, 2.3 10 3/UL [facility] 1.5-6.6 Normal blood " mean platelet 10.1 fL [facility] 7.4-11.4 Normal volume " platelet count 194 10 3/UL [facility] 130-450 Normal " red blood cell 12.8 % [facility] 12.0-15.0 Normal distribution width " mean corpuscular 31.2 g/dL [facility] 32.0-36.0 Low hemoglobin concentration, rbc " mean corpuscular 28.1 pg [facility] 27.0-31.0 Normal hemoglobin, RBC " mean corpuscular 90.1 fL [facility] 80.0-94.0 Normal volume, RBC " hematocrit, blood 49.1 % [facility] 42.0-52.0 Normal " hemoglobin, blood 15.3 g/dL [facility] 14.0-18.0 Normal " erythrocyte (RBC) 5.45 10 [facility] 4.70-6.10 Normal count 6/UL " leukocyte count, 3.7 X10 [facility] 4.8-10.8 Low blood 3/UL urinalysis, routine Clean Catch Leslye R /08 MARTHA Feliz " specific gravity, 1.020 Leslye R urine MARTHA Feliz " pH, urine, 6.5 Leslye R semiquantitative MARTHA Feliz " glucose, urine, negative Leslye R semiquantitative MARTHA Feliz " bilirubin, urine negative Leslye R MARTHA Feliz " ketones, urine, by negative Leslye R test strip MARTHA Feliz " RBC, urine, negative Leslye R dipstick MARTHA Feliz " protein, urine, negative Leslye R semiquantitative MARTHA Feliz (dipstick) " urobilinogen, 0.2 Leslye R urine, MATRHA Feliz semiquantitative (dipstick) " nitrite, urine, negative Leslye R semiquantitative MARTHA Feliz " leukocyte esterase, negative Leslye R urine, by dipstick MARTHA Feliz " appearance, urine clear Leslye R MARTHA Feliz " urine color yellow Leslye R GISSELLE Feliz-C urinalysis, routine Clean Catch Earnestine L /18 Zuñiga, PRODUCT DEVELOPER " glucose, urine, negative Earnestine L semiquantitative Zuñiga, PRODUCT DEVELOPER " bilirubin, urine negative Earnestine L Zuñiga, PRODUCT DEVELOPER " ketones, urine, by negative Earnestine L test strip Zuñiga, PRODUCT DEVELOPER " specific gravity, 1.025 Earnestine L urine Zuñiga, PRODUCT DEVELOPER " RBC, urine, negative Earnestine L dipstick Zuñiga, PRODUCT DEVELOPER " pH, urine, 6 Earnestine L semiquantitative Zuñiga, PRODUCT DEVELOPER " protein, urine, negative Earnestine L semiquantitative Zuñiga, PRODUCT DEVELOPER (dipstick) " urobilinogen, 0.2 Earnestine L urine, Zuñiga, PRODUCT DEVELOPER semiquantitative (dipstick) " nitrite, urine, negative Earnestine L semiquantitative Zuñiga, PRODUCT DEVELOPER " leukocyte esterase, negative Earnestine L urine, by dipstick Zuñiga, PRODUCT DEVELOPER " appearance, urine clear Earnestine L Zuñiga, PRODUCT DEVELOPER " urine color yellow Earnestine L Zuñiga, PRODUCT DEVELOPER mean platelet 8.3 fL [facility] /15 volume " platelet count 194 [facility] 026-366 6089/MM3 " red blood cell 12.1 % [facility] 12-15 distribution width " mean corpuscular 30.4 pg [facility] 27-31 hemoglobin, RBC " mean corpuscular 86.9 fL [facility] 80-94 volume, RBC " hematocrit, blood 39.9 % [facility] 42.0-52.0 Low " hemoglobin, blood 14.0 g/dL [facility] 14.0-18.0 " erythrocyte (RBC) 4.59 10 [facility] 4.70-6.10 Low count " leukocyte count, 5.5 X (10) [facility] 4.8-10.8 blood 3 alanine 36 1/L [facility] 10-60 /15 aminotransferase (SGPT), serum " carbon dioxide, 28 mmol/L [facility] 21-32 serum, total " chloride, serum 102 mmol/L [facility] 101-111 " potassium, blood 4.4 meq/L [facility] 3.5-5.0 " sodium, serum 137 mmol/L [facility] 135-145 " aspartate 27 1/L [facility] 10-42 aminotransferase (SGOT), serum " albumin/globulin 1.5 [facility] 1.0-2.2 ratio, serum " albumin, serum 3.9 g/dL [facility] 3.2-5.5 " protein, total, 6.5 g/dL [facility] 6.7-8.2 Low serum " blood glucose 94 mg/dL [facility] 70-100 " creatinine, serum 0.9 mg/dL [facility] 0.2-1.2 " calcium, serum 9.0 mg/dL [facility] 8.5-10.5 " urea nitrogen, 12 mg/dL [facility] 6-20 blood " bilirubin, serum, 0.8 mg/dL [facility] 0.0-1.0 total " alkaline 50 1/L [facility] 42-121 phosphatase, serum leukocyte esterase, Negative An L /19 urine, by dipstick MARTHA Martinez " urobilinogen, 0.2 An L urine, MARTHA Martinez semiquantitative (dipstick) " nitrite, urine, Negative An L semiquantitative MARTHA Martinez " RBC, urine, Negative An L dipstick MARTHA Martinez " bilirubin, urine Negative An L MARTHA Martinez " ketones, urine, by Negative An L test strip MARTHA Martinez " glucose, urine, Negative An L semiquantitative MARTHA Martinez " protein, urine, Negative An L semiquantitative MARTHA Martinez (dipstick) " pH, urine, 5.0 An L semiquantitative MARTHA Martinez " specific gravity, 1.010 An L urine MARHTA Martinez " urine color Yellow An L MARTHA Martinez " appearance, urine Clear An L MARTHA Martinez basophils as 0.4 % [facility] 0.0-2.0 /24 percent of blood leukocytes " eosinophils as 3.3 % [facility] 0.0-7.5 percent of blood leukocytes " monocytes as 10.2 % [facility] 2.0-11.0 percent of blood leukocytes " lymphocytes as 34.4 % [facility] 20.0-51.0 percent of blood leukocytes " neutrophil count 51.7 % [facility] 43.0-75.0 " mean platelet 8.5 fL [facility] volume " platelet count 160 [facility] [phone]/MM3 " red blood cell 13.3 % [facility] 12.0-15.0 distribution width " mean corpuscular 30.0 pg [facility] 27.0-31.0 hemoglobin, RBC " mean corpuscular 86.5 fL [facility] 80.0-94.0 volume, RBC " hematocrit, blood 40.8 % [facility] 42.0-52.0 Low " hemoglobin, blood 14.1 g/dL [facility] 14.0-18.0 " erythrocyte (RBC) 4.72 [facility] 4.70-6.10 count MILL/CUMM " leukocyte count, 3.7 X (10) [facility] 4.8-10.8 Low blood 3 carbon dioxide, 30 mmol/L [facility] 21-32 serum, total " chloride, serum 106 meq/L [facility] 101-111 " potassium, blood 4.3 meq/L [facility] 3.5-5.0 " sodium, serum 141 mmol/L [facility] 369-275 4522/06 creatinine, serum 0.9 mg/dL [facility] 0.2-1.2 " urea nitrogen, 17 mg/dL [facility] 6-20 blood thyroid stimulating 1.01 [facility] 0.34-5.60 hormone, serum u[iU]/mL alanine 20 1/L [facility] 10-60 aminotransferase (SGPT), serum " aspartate 24 1/L [facility] 10-42 aminotransferase (SGOT), serum " albumin/globulin 1.8 [facility] 1.0-2.2 ratio, serum " albumin, serum 4.2 g/dL [facility] 3.2-5.5 " protein, total, 6.6 g/dL [facility] 6.7-8.2 Low serum " bilirubin, serum, 0.9 mg/dL [facility] indirect " bilirubin, serum, 0.1 mg/dL [facility] 0.1-0.5 direct " bilirubin, serum, 1.0 mg/dL [facility] 0.0-1.0 total " alkaline 47 1/L [facility] 42-121 phosphatase, serum " blood glucose 87 mg/dL [facility] 70-100 Helicobacter pylori Negative Link[facility] screen, serum basophils as 0.4 % [facility] 0.0-2.0 /09 percent of blood leukocytes " eosinophils as 3.0 % [facility] 0.0-7.5 percent of blood leukocytes " monocytes as 9.9 % [facility] 2.0-11.0 percent of blood leukocytes " lymphocytes as 33.8 % [facility] 20.0-51.0 percent of blood leukocytes " neutrophil count 52.9 % [facility] 43.0-75.0 " mean platelet 8.4 fL [facility] volume " platelet count 162 [facility] [phone]/MM3 " red blood cell 13.5 % [facility] 12.0-15.0 distribution width " mean corpuscular 30.1 pg [facility] 27.0-31.0 hemoglobin, RBC " mean corpuscular 86.8 fL [facility] 80.0-94.0 volume, RBC " hematocrit, blood 40.3 % [facility] 42.0-52.0 Low " hemoglobin, blood 14.0 g/dL [facility] 14.0-18.0 " erythrocyte (RBC) 4.64 [facility] 4.70-6.10 Low count MILL/CUMM " leukocyte count, 3.2 X (10) [facility] 4.8-10.8 Low blood 3 leukocyte esterase, Negative Claudine B /23 urine, by dipstick Akhil, PRODUCT DEVELOPER " urobilinogen, 0.2 Claudine B urine, Akhil, PRODUCT DEVELOPER semiquantitative (dipstick) " nitrite, urine, Negative Claudine B semiquantitative Akhil, PRODUCT DEVELOPER " RBC, urine, Negative Claudine B dipstick Akhil, PRODUCT DEVELOPER " bilirubin, urine Negative Claudine B Akhil, PRODUCT DEVELOPER " ketones, urine, by Negative Claudine B test strip Akhil, PRODUCT DEVELOPER " glucose, urine, Negative Claudine B semiquantitative Akhil, PRODUCT DEVELOPER " protein, urine, Trace Claudine B semiquantitative Akhil, PRODUCT DEVELOPER (dipstick) " pH, urine, 6.0 Claudine B semiquantitative Akhil, PRODUCT DEVELOPER " specific gravity, 1.025 Claudine B urine Akhil, PRODUCT DEVELOPER " urine color Yellow Claudine B Akhil, PRODUCT DEVELOPER " appearance, urine Clear Claudine B King PRODUCT DEVELOPER Microbial Negative Rebecca R /23 identification kit, Eduardo, HOLLI rapid strep method leukocyte esterase, Negative urine, by dipstick HOLLI Linder " urobilinogen, 0.2 Kelly E urine, HOLLI Linder semiquantitative (dipstick) " nitrite, urine, Negative Kelly E semiquantitative JULIÁN LinderN " RBC, urine, Negative Kelly E dipstick HOLLI Linder " bilirubin, urine Negative Kelly E Kailash PRODUCT DEVELOPER " ketones, urine, by Negative Kelly E test strip HOLLI Linder " glucose, urine, Negative Kelly E semiquantitative Kailash, PRODUCT DEVELOPER " protein, urine, Negative Kelly E semiquantitative Kailash, PRODUCT DEVELOPER (dipstick) " pH, urine, 5.0 Kelly E semiquantitative JULIÁN LinderN " specific gravity, 1.010 Kelly E urine JULIÁN LinderN " urine color Yellow Kelly E JULIÁN LinderN " appearance, urine Clear Kelly E JULIÁN LinderN HISTORY OF IMMUNIZATIONS Date Vaccine Dose Lot Number Status Boostrix Intramuscular Suspension 5-2.5-18.5 completed HISTORY OF MEDICATION USE Medication Instructions Dates Provider Comments CARBAMAZEPINE 200 MG Take one tablet by Kenya mcconnell, ORAL TABLET mouth two times daily PA-C for seizure prevention CLONAZEPAM 0.5 MG ORAL Take one - two tablet Kenya Benavidez, TABLET by mouth twice daily PA-C for anxiety and sleep BUSPIRONE HCL 30 MG Take one by mouth - Kenya Benavidez , ORAL TABLET twice daily PA-C LEXAPRO 10 MG ORAL Take one tablet by - Kaila S TABLET mouth once daily MARTHA Courtney SEROQUEL 50 MG ORAL Take one by mouth Kenya Benavidez , TABLET daily in the morning PA-C SEROQUEL 100 MG ORAL Take two by mouth at Kenya bishop, TABLET bedtime PA-C OMEPRAZOLE 20 MG ORAL Take one capsule by - Kaila S CAPSULE DELAYED RELEASE mouth once daily for MARTHA Courtney abdominal pain LEVBID 0.375 MG ORAL 1 tab PO q8 hrs PRN - Julia Tubbs , TABLET EXTENDED RELEASE for abdominal cramping PA-C 12 HOUR IMODIUM A-D 2 MG ORAL two tablets with first - Julia Tubbs, TABLET loose bowel movement PA-C than one with each following loose bowel movement maximum of six per day ZITHROMAX Z-CORY 250 MG 2 po today, then one - Hany G ORAL TABLET daily x 4days MD Dejon FLONASE 50 MCG/ACT one spray each nostril - Julia velazquez, NASAL SUSPENSION daily PA-C KEFLEX 500 MG ORAL 1 PO four times daily - Hany G CAPSULE MD Dejon AMOXICILLIN 500 MG ORAL 1 PO three times daily - Kelly Linder, CAPSULE for 10 days PRODUCT DEVELOPER SOCIAL HISTORY Date Observation Value Provider social history E&M Patient is a former Hakan Jay MD smoker. 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 Three children. " social history reviewed reviewed - no changes Yuko Jay MD E&M required " drug use, illicit no Leslye R re MA-C " alcohol use, type beer Leslye R Do re MA-C " alcohol use yes LeslyeCARMEN McdanielsC " smoking status Former smoker MARTHA Rojas social history reviewed reviewed - no changes Yuko Jay MD E&M required " alcohol use, type beer Leslye R Do re, MA-C " drug use, illicit no Leslye R Do re, MA-C " alcohol use yes Leslye R Tray MA-C " smoking status Former smoker Leslyesarahi Feliz MA-C social history E&M Patient is a former Julia Tubbs PA-C smoker. 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 Three children. social history reviewed reviewed - no changes Yuko Jay MD E&M required " social history E&M Patient is a former Hakan Jay MD smoker. Alcohol Use - yes, rare.Heavy air duct mechanic.. Two children. " exercise type yoga Crystal TL Bela sana, PRODUCT DEVELOPER alcohol use, type 4 beers a week Kelly Linder LPN " drug use, illicit no Kelly Linder LPN " passive cigarette smoke no Kelly allison LPN exposure social history E&M Patient is a former Hakan Jay MD smoker. Alcohol Use - yes Heavy air duct mechanic.. Two children. " social history E&M Patient is a former [place] B [place], EMR smoker. Alcohol Use - Applicatio n Support yes Perfect Binder Setter " alcohol use, type beer [place], EMR Application Supp ort Perfect Binder Setter " smoking status quit [place], EM R Application Supp ort Perfect Binder Setter FUNCTIONAL STATUS No Information Available MENTAL STATUS No Information Available MEDICAL EQUIPMENT No Information Available FAMILY HISTORY No Information Available INSURANCE PROVIDERS Payer name Policy type / Coverage type Covered part y ID FIRST CHOICE [facility] Commercial [id number] ADVANCE DIRECTIVES No Information Available TREATMENT PLAN Date Name VITAMIN B 12 TSH WITH REFLEX TO FT4 CBC W/Diff/Plt COMPREHENSIVE METABOLIC PANE L H Pylori Stool Folic Acid VITAMIN B 12 TSH CBC W/Diff/Plt COMPREHENSIVE METABOLIC PANE L - seizures, alzheimersReferral - Referral - Referral - - Referral [id number] - OV, Detailed 33049 - OV, Detailed [id number] - OV, Detailed [id number] - OV, Detailed 99506 - OV, Expanded [id number] - OV, Expanded ABDOMEN SUPINE AND UPRIGHT FAA - 3rd Class HISTORY OF PROCEDURES No Information Available GOALS No Information Available HEALTH CONCERNS No Information Available
--- NOTE | 2019-01-18 16:58 | HISTORY & PHYSICAL EXAMINATION ---
Chief Complaint - Chief Complaint Chief Complaint: Confusion History of Present Illness - Admitted From Admitted From:: Home - History Obtained From Records Reviewed: Yes History obtained from: Patient's spouse, Family, ER Physician Exam Limitations: Patient is sedated and unable to participate in conversation - History of Present Illness HPI Comment/Other: This is a 53-year-old male with a past medical history significant for familial early onset dementia, Seizures who presents from home for altered mental status and fall. History is obtained from the as the patient is obtunded and unable to give a history. She states that last night around 9 PM the patient went to the kitchen and told her he took a few pills of Pepto-Bismol. She told him that there are no Pepto-Bismol pills and then he drank Pepto-Bismol that they had. She quickly took that away from him. Shortly after she noticed that approximately 6 tablets of Klonopin were missing and she was concerned that he may have taken them last night. He went to go to sleep and she left him as he was snoring and slept downstairs. Around 5 AM she found him on the ground and she is unsure if he had a seizure or not. After assessing him she realized he was not his usual self and was quite confused and was unable to ambulate. She reports that he has early onset dementia which runs in the family. He was recently diagnosed with seizures a few weeks ago and is on carbamazepine 200 mg twice a day. He also takes Seroquel at night and Klonopin. She reports he had 2 seizures over the last 2 weeks and he was started on carbamazepine just a couple of days ago. She reports that at baseline he walks on his own and is able to converse without issues. He is able to recognize his family but can be confused at times. In the emergency department, his labs were unremarkable. CT the head was unremarkable. Urine toxicology was positive for benodiazpines and TCA's. He was very agitated and was given olanzapine. He is too sedated to go home and [facility] was consulted for admission. His states he is a DNR and is purely comfort measures. She brings his POLST form with her which states he does not want IVs and does not want anything except treatment for his anxiety and seizures if he wants to have one. The does not want him to have labs or IV access. History - Past Medical History Neuro: reports: Alzhiemer's (Early onset - Familial), Seizure disorder - Family & Social History Family History Comment/Other: He has a family history of familial early onset dementia. Living arrangement: At home Living Situation: With family Social History Notes: He lives at home with his family. He is a nonsmoker. He rarely drinks alcohol. Meds/Allgy - Home Medications Home Medications: Ambulatory Orders Medication Instructions Recorded Confirmed QUEtiapine [SEROquel] 150 mg PO QPM 01/18/19 01/18/19 carBAMazepine [Carbamazepine] 200 mg PO BID 01/18/19 01/18/19 clonazePAM [KlonoPIN] 0.5 mg PO BID 01/18/19 01/18/19 - Allergies Allergies/Adverse Reactions: Allergies Allergy/AdvReac Type Severity Reaction Status Date / Time No Known Drug Allergies Allergy Verified 01/18/19 11:59 Review of Systems - All Other Systems All Other Systems: reports: Other (Unable to obtain due to altered mental status.) Prior Level of Functionality: He has early onset dementia. He ambulates on his own. Can be disoriented at times. Exam - Vital Signs Reviewed Vital Signs: Yes Vital Signs: Vital Signs x48h Temp Pulse Pulse Resp BP BP Pulse Ox 01/18/19 15:05 89 14 116/84 H 01/18/19 11:52 99.7 C H 77 18 116/89 H 99 - Physical Exam General Appearance: positive: No acute distress Eyes Bilateral: positive: PERRL, Conjunctivae nml ENT: positive: ENT inspection nml Neck: positive: Nml inspection Respiratory: positive: No respiratory distress. negative: Wheezes, Rales, Rhonchi Cardiovascular: positive: Regular rate & rhythm, No murmur. negative: Tachycardia, Systolic murmur, Diastolic murmur Abdomen: positive: Non-tender, No distention. negative: Tenderness Skin: positive: No rash, Warm, Dry Extremities: positive: No pedal edema Neurologic/Psychiatric: positive: Other (He is obtunded. Does respond to painful stimuli. Moving all four extremities.) Conclusion/Plan - Problem List (1) Altered mental status Conclusion/Plan: This is likely secondary to benzodiazepine overdose. He is on Klonopin which does have a longer half life. He received Zyprexa in the ER which is like contributing to his current mental status. His does not want labs or IV ac cess. As he is purely comfort measures, will just monitor him at this time. He will hopefully become more alert over next few hours. Qualifiers: Altered mental status type: somnolence Qualified Code(s): R40.0 - Somnolence (2) Benzodiazepine overdose Conclusion/Plan: This appears to be an accidental overdose. Plans as above. (3) Early onset Alzheimer's dementia Conclusion/Plan: He unfortunately has early onset alzheimer's dementia. Will continue his home me dications once he is able to take PO. (4) Seizure disorder Conclusion/Plan: Stable. Continue home Carbamazepine once taking PO. - Lab Results Lab results reviewed: Yes Fish Bones: 01/18/19 12:56 01/18/19 12:56 - Diagnostic Imaging Results Diagnostic Imaging Results: positive: Final report reviewed Core Measures - Anticipated LOS I expect patient to be DC'd or transferred within 96 hours.: Yes - Issues Hospital Issues and Management Plan: Benzo overdose requiring observation. - DVT/VTE - Prophylaxis VTE/DVT Device ordered at admit?: Yes VTE/DVT Prophylaxis med ordered at admit?: No Not Ordered - Medical Reason: Patient/Family refused
[2019-01-18] MEDS ORDERED: SODIUM CHLORIDE FLUSH 0.9% 10 ML SYRINGE IVP SCH (17:00)
[2019-01-18] MEDS ORDERED: HEPARIN 5,000 UNIT/ML VIAL SUBQ SCH (21:00)
[2019-01-18] MEDS: carBAMazepine 200 MG TABLET PO SCH (22:28)
[2019-01-19] MEDS ORDERED: HALOPERIDOL 5 MG/ML VIAL IM SCH
[2019-01-19 09:29] VITALS: BP 115/88
[2019-01-19] MEDS ORDERED: QUEtiapine 100 MG TABLET PO SCH ×2 (10:45→21:00)
[2019-01-19] MEDS ORDERED: clonazePAM 0.5 MG TABLET PO SCH (11:00)
[2019-01-19] MEDS: carBAMazepine 200 MG TABLET PO SCH (11:18)
[2019-01-19] MEDS ORDERED: levETIRAcetam 500 MG/5 ML UDC PO SCH (12:00)
--- NOTE | 2019-01-19 12:09 | Discharge Plan ---
Discharge Plan Problem Reviewed?: Yes Disposition: Home, Self Care Condition: Poor Diet: Regular Activity Restrictions: Activity as Tolerated Shower Restrictions: No (fall precaution) Instruction Topics: Dementia Health Concerns: seizure Plan of Treatment: you has no seizure at hospital, advise you continue your home meds to prevent seizure. Care Goals: stabilization of your medical conditions Assessment: discussed with your about your care plan, she agreed, and request d/c your home Additional Instructions or Follow Up instructions: you may followup your PCP in one week, followup neurologist as out-pt. Should your symptoms return or worsen, you may present ER or call 911 for help No Smoking: If you smoke, Please STOP! Call for help. Follow-up with: Kenya Benavidez PA-C [Primary Care Provider] -
--- NOTE | 2019-01-19 12:15 | DISCHARGE SUMMARY ---
Discharge Summary Admit Date: 01/18/19 Discharge Date: 01/19/19 Discharging Provider: VILLANUEVA Primary Care Provider: Dr. Benavidez Condition at Discharge: Poor Discharge Disposition: 01 Home, Self Care Discharge Facility Name: home - DIAGNOSES Admission Diagnoses: (1) Altered mental status (2) Benzodiazepine overdose (3) Early onset Alzheimer's dementia (4) Seizure disorder Discharge Diagnoses with Status of Each Condition: 1) Altered mental status as pt's baseline, stable. CT of head is unremarkable. pt's refused to have IV port and lab test for pt in the hospital. pt's request d/c home today. (2) Benzodiazepine overdose stable. pt became alert. pt walked with his family, took showers. pt state he want to go to home to eat his lunch. (3) Early onset Alzheimer's dementia stable. (4) Seizure disorder stable. pt has no seizure at hospital. continue his home meds - HPI History of Present Illness: refer from Dr. Henley's HPI on 01/18/19 This is a 53-year-old male with a past medical history significant for familial early onset dementia, Seizures who presents from home for altered mental status and fall. History is obtained from the as the patient is obtunded and un able to give a history. She states that last night around 9 PM the patient went to the kitchen and told her he took a few pills of Pepto-Bismol. She told him that there are no Pepto-Bismol pills and then he drank Pepto-Bismol that they had. She quickly took that away from him. Shortly after she noticed that approximately 6 tablets of Klonopin were missing and she was concerned that he may have taken them last night. He went to go to sleep and she left him as he was snoring and slept downstairs. Around 5 AM she found him on the ground and she is unsure if he had a seizure or not. After assessing him she realized he was not his usual self and was quite confused and was unable to ambulate. She reports that he has early onset dementia which runs in the family. He was recently diagnosed with seizures a few weeks ago and is on carbamazepine 200 mg twice a day. He also takes Seroquel at night and Klonopin. She reports he had 2 seizures over the last 2 weeks and he was started on carbamazepine just a couple of days ago. She reports that at baseline he walks on his own and is able to converse without issues. He is able to recognize his family but can be confused at times. In the emergency department, his labs were unremarkable. CT the head was unremarkable. Urine toxicology was positive for benodiazpines and TCA's. He was very agitated and was given olanzapine. He is too sedated to go home and medicine was consulted for admission. His states he is a DNR and is purely comfort measures. She brings his POLST form with her which states he does not want IVs and does not want anything except treatment for his anxiety and seizures if he wants to have one. The does not want him to have labs or IV access. - HOSPITAL COURSE Hospital Course: pt was admitted for AMS and possible overdose of benzodiazepine. After overnight management in hospital, pt become alert, walked with his family, return his baseline of mental status. CT of head was unremarkable. pt's refused to have IV port and lab test for pt in the hospital. pt's request pt be d/c today. The detail hospital course is as the below. 1) Altered mental status as pt's baseline, stable. CT of head is unremarkable. pt's refused to have IV port and lab test for pt in the hospital. pt's request d/c home today. (2) Benzodiazepine overdose stable. pt became alert. pt walked with his family, took showers. pt state he want to go to home to eat his lunch. (3) Early onset Alzheimer's dementia stable. (4) Seizure disorder stable. pt has no seizure at hospital. continue his home meds - ALLERGIES Allergies/Adverse Reactions: Allergies Allergy/AdvReac Type Severity Reaction Status Date / Time No Known Drug Allergies Allergy Verified 01/18/19 11:59 - MEDICATIONS Home Medications: Ambulatory Orders Medication Instructions Recorded Confirmed carBAMazepine [Carbamazepine] 200 mg PO BID 01/18/19 01/18/19 clonazePAM [KlonoPIN] 0.5 mg PO BID 01/18/19 01/18/19 QUEtiapine [SEROquel] 200 mg PO QPM 01/19/19 01/19/19 Quetiapine Fumarate [Seroquel] 50 mg PO DAILY 01/19/19 01/19/19 - PHYSICAL EXAM AT DISCHARGE General Appearance: positive: No acute distress, Alert. negative: Lethargic Eyes Bilateral: positive: Normal inspection, PERRL, No lid inflammation ENT: positive: ENT inspection nml, Pharynx nml, No signs of dehydration. negative: Purulent nasal drainage Neck: positive: Nml inspection, Thyroid nml, No JVD, Trachea midline. negative: Thyromegaly, Lymphadenopathy (R), Lymphadenopathy (L), Stiff neck, Tracheal deviation Respiratory: positive: Chest non-tender, No respiratory distress, Breath sounds nml. negative: Wheezes, Rales, Rhonchi Cardiovascular: positive: Regular rate & rhythm, No murmur, No gallop. negative: Irregularly irregular, Extrasystoles, Tachycardia, Bradycardia, JVD present, Systolic murmur, Diastolic murmur Peripheral Pulses: positive: 2+ Abdomen: positive: Non-tender, No organomegaly, Nml bowel sounds, No distention. negative: Tenderness, Guarding, Rebound Skin: positive: Color nml, No rash, Warm, Dry. negative: Cyanosis, Diaphoresis, Pallor Extremities: positive: Non-tender, Full ROM, Nml appearance, No pedal edema. negative: Calf tenderness, Venkat's sign/cords Neurologic/Psychiatric: positive: Motor nml, Sensation nml. negative: Weakness, Sensory loss, Facial droop, Slurred/abnml speech, Depressed mood/affect - LABS Result Diagrams: 01/18/19 12:56 01/18/19 12:56 - FOLLOW UP Follow Up: you may followup your PCP in one week, followup neurologist as out-pt. Should your symptoms return or worsen, you may present ER or call 911 for help - TIME SPENT Time Spent in Discharge (Minutes): 50
== END 2019-01-19 12:32 | disposition home or self-care (01) ==
LOC: ED 11:43 → MS2 13:59
PROVIDERS: ADMIT Internal Medicine; ATTEND Nurse Practitioner Gerontology
DX: T42.4X1A Poisoning by benzodiazepines, accidental (unintentional), initial encounter (principal); R41.82 Altered mental status, unspecified; Y92.019 Unspecified place in single-family (private) house as the place of occurrence of the external cause; W19.XXXA Unspecified fall, initial encounter; G30.0 Alzheimer's disease with early onset; F02.80 Dementia in other diseases classified elsewhere, unspecified severity, without behavioral disturbance, psychotic disturbance, mood disturbance, and anxiety; G40.909 Epilepsy, unspecified, not intractable, without status epilepticus; Z66 Do not resuscitate
CPT/HCPCS: 36415; 70450; 80053; 80156; 81003; 83690; 84443; 85025; 96372; 99285; A9270; G0378; 80306; 80307; 80320; 80329; 81001; 87086

== ENCOUNTER 2019-01-22 10:00 | Outpatient (CLI) | payer MEDICARE ==
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
== END 2019-01-22 10:01 | disposition home or self-care (01) ==
LOC: PC 10:00
PROVIDERS: ATTEND Nurse Practitioner Adult Health
DX: Z51.5 Encounter for palliative care (principal); I95.9 Hypotension, unspecified; R51 Headache; R63.4 Abnormal weight loss; R63.0 Anorexia; G30.0 Alzheimer's disease with early onset; F02.81 Dementia in other diseases classified elsewhere, unspecified severity, with behavioral disturbance; F05 Delirium due to known physiological condition; G40.409 Other generalized epilepsy and epileptic syndromes, not intractable, without status epilepticus; F41.9 Anxiety disorder, unspecified; T42.1X6A Underdosing of iminostilbenes, initial encounter; T42.4X6A Underdosing of benzodiazepines, initial encounter; Z91.138 Patient's unintentional underdosing of medication regimen for other reason; Y92.009 Unspecified place in unspecified non-institutional (private) residence as the place of occurrence of the external cause; Z79.899 Other long term (current) drug therapy; Z91.81 History of falling; Z66 Do not resuscitate
CPT/HCPCS: 99345